=== PATIENT | female | born 1985 | race American Indian/Alaskan Native ===

== ENCOUNTER 2018-07-20 07:03 | Emergency (ER) | payer BC ==
[2018-07-20 07:28] VITALS: BP 126/75
--- NOTE | 2018-07-20 07:44 | Emergency Department Report ---
ED Headache HPI - General Chief Complaint: Headache Stated Complaint: HEAD PAIN Time Seen by Provider: 07/20/18 07:29 - History of Present Illness Initial Comments: This is a 32-year-old female with a history of migraine headaches who presents to the ED complaining of frontal, throbbing, intermittent, aching headache 2 days. Patient states she has no relief with ibuprofen and Excedrin. Palpation rates pain a 6 out of 10 in intensity. She admits mild nausea with no blurry vision. Patient is also complaining of left-sided mid to lower back pain that is worse with movement. Patient denies any recent injuries, trauma or falls. She denies fevers/chills/cough/runny nose Quality: moderate Head Injury Location: frontal Recent Head Trauma: no recent headache/trauma, chronic headaches Associated Symptoms: denies: confusion, fatigue, facial pain, nausea/vomiting, nasal congestion, seizures, stiff neck Allergies/Adverse Reactions: Allergies No Known Allergies Allergy (Verified 09/16/15 11:21) Home Medications: Ambulatory Orders Ibuprofen [Motrin] 600 mg PO Q6H PRN #30 tablet 09/18/15 Loratadine [Claritin] 10 mg PO DAILY PRN 09/18/15 Methylergonovine [Methergine] 0.2 mg PO Q8HR #3 tablet 09/18/15 RX: Doxycycline [Vibramycin CAP] 100 mg PO Q12HR #14 capsule 09/18/15 oxyCODONE /ACETAMINOPHEN [Percocet 5/325] 1 tab PO Q6HR PRN #20 tablet 09/18/15 Cyclobenzaprine [Flexeril] 10 mg PO QHS PRN #20 tablet 07/20/18 Ibuprofen [Motrin] 800 mg PO Q8HR #30 tablet 07/20/18 Prochlorperazine [Compazine] 10 mg PO Q8HR #30 tablet 07/20/18 ED Review of Systems ROS: Stated complaint: HEAD PAIN Other details as noted in HPI Comment: All other systems reviewed and negative 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 - Social History Smoking Status: Never Smoker Substance Use Type: None - Medications Home Medications: Home Medications Medication Instructions Recorded Confirmed Last Taken Type Ibuprofen [Motrin] 600 mg PO Q6H PRN #30 tablet 09/18/15 Unknown Rx Loratadine [Claritin] 10 mg PO DAILY PRN 09/18/15 09/18/15 09/16/15 History Methylergonovine [Methergine] 0.2 mg PO Q8HR #3 tablet 09/18/15 Unknown Rx RX: Doxycycline [Vibramycin CAP] 100 mg PO Q12HR #14 capsule 09/18/15 Unknown Rx oxyCODONE /ACETAMINOPHEN [Percocet 1 tab PO Q6HR PRN #20 tablet 09/18/15 Unknown Rx 5/325] Cyclobenzaprine [Flexeril] 10 mg PO QHS PRN #20 tablet 07/20/18 Unknown Rx Ibuprofen [Motrin] 800 mg PO Q8HR #30 tablet 07/20/18 Unknown Rx Prochlorperazine [Compazine] 10 mg PO Q8HR #30 tablet 07/20/18 Unknown Rx ED Physical Exam - General Limitations: No Limitations General appearance: alert, in no apparent distress - Head Head exam: Present: atraumatic, normocephalic - Eye Eye exam: Present: normal appearance, PERRL, EOMI Pupils: Present: normal accommodation - ENT ENT exam: Present: mucous membranes moist - Neck Neck exam: Present: normal inspection - Respiratory Respiratory exam: Present: normal lung sounds bilaterally. Absent: respiratory distress - Cardiovascular Cardiovascular Exam: Present: regular rate, normal rhythm. Absent: systolic murmur, diastolic murmur, rubs, gallop - GI/Abdominal GI/Abdominal exam: Present: soft, normal bowel sounds - Extremities Exam Extremities exam: Present: normal inspection - Back Exam Back exam: Present: normal inspection - Neurological Exam Neurological exam: Present: alert, oriented X3 - Expanded Neurological Exam Expanded Neurological exam: Absent: innattentive, memory loss-remote event, ataxia Patient oriented to: Present: person, place, time Cranial nerves: EOM's Intact: Normal, Facial Sensation: Normal Upper motor neuron: Boby Neglect: Normal Sensory exam: Upper Extremity Light Touch: Normal, Lower Extremity Light Touch: Normal Motor strength exam: RUE: 5, LUE: 5, RLE: 5, LLE: 5 Best Eye Response ([place]): (4) open spontaneously Best Motor Response (Astrid): (6) obeys commands Best Verbal Response (Astrid): (5) oriented Astrid Total: 15 - Psychiatric Psychiatric exam: Present: normal affect, normal mood - Skin Skin exam: Present: warm, dry, intact, normal color. Absent: rash ED Course Vital Signs 07/20/18 07:25 Temperature 98.4 F Pulse Rate 98 H Respiratory 16 Rate Blood Pressure 126/75 O2 Sat by Pulse 98 Oximetry ED Medical Decision Making - Medical Decision Making 32-year-old female presents with migraine headache Patient has no neurological deficit. She is in no acute distress. Patient was medicated during ED stay. Reports headache resolved Vital signs are normal. Patient is in no acute distress. Discussed follow-up with primary care physician. Discussed and is symptoms worsen or new symptoms return to return to ED immediately. Patient states understanding instructions and will follow-up - Differential Diagnosis migraine headache, sinusitis, UTI, myalgia Critical care attestation.: If time is entered above; I have spent that time in minutes in the direct care of this critically ill patient, excluding procedure time. ED Disposition Clinical Impression: Migraine headache with aura Disposition: TO HOME OR SELFCARE Is pt being admited?: No Does the pt Need Aspirin: No Condition: Stable Instructions: Migraine Headache (ED), Acute Headache (ED), Musculoskeletal Pain (ED) Additional Instructions: Make sure to follow up with the primary care physician as discussed. Take all your medications as you've been prescribed. If you have any worsening symptoms or develop new symptoms please return to ED immediately. Prescriptions: Cyclobenzaprine [Flexeril] 10 mg PO QHS PRN #20 tablet PRN Reason: Muscle Spasm Ibuprofen [Motrin] 800 mg PO Q8HR #30 tablet Prochlorperazine [Compazine] 10 mg PO Q8HR #30 tablet Referrals: BASILIO BETH MD [Staff Physician] - 3-5 Days [facility] [Outside] - 3-5 Days [facility] [Outside] - 3-5 Days Forms: Work/School Release Form(ED) Time of Disposition: 08:43
[2018-07-20 07:52] LABS: Bilirubin,Urine NEG (Negative); Blood,Urine NEG (Negative); Color,Urine Yellow (Yellow); Mucus,Urine FEW /HPF; Protein,Urine <15 mg/dL mg/dL (Negative); Urobilinogen,Urine < 2.0 mg/dL (<2.0)
[2018-07-20] MEDS ORDERED: COMPAZINE PO ONE (08:00)
[2018-07-20] MEDS ORDERED: IBUPROFEN PO ONE (08:41)
== END 2018-07-20 09:03 | disposition home or self-care (01) ==
LOC: ED 07:03
DX: G43.109 Migraine with aura, not intractable, without status migrainosus (principal); K21.9 Gastro-esophageal reflux disease without esophagitis
CPT/HCPCS: 81001; Q0164

== ENCOUNTER 2019-05-30 12:01 | Emergency (ER) | payer BC ==
--- NOTE | 2019-05-30 12:08 | Emergency Department Report ---
Blank Doc - Documentation Documentation: 33-year-old female that presents with abdominal pain with n/v. This initial assessment/diagnostic orders/clinical plan/treatment(s) is/are subject to change based on patient's health status, clinical progression and re- assessment by fellow clinical providers in the ED. Further treatment and workup at subsequent clinical providers discretion. Patient/guardians urged not to elope from the ED as their condition may be serious if not clinically assessed and managed. Initial orders include: 1- Patient sent to [facility] for further evaluation and treatment 2- labs 3- UA
[2019-05-30 12:51] LABS: Hematocrit 39.7 % (30.3-42.9); Hemoglobin 13.2 gm/dl (10.1-14.3); Mean Corpuscular HGB Conc 33 % (30-34); Mean Corpuscular Volume 89 fl (79-97); Platelet Count 272 K/mm3 (140-440); Red Blood Count 4.47 M/mm3 (3.65-5.03); Red Cell Distribution Width 14.2 % (13.2-15.2)
[2019-05-30 13:13] LABS: Alanine Aminotransferase 32 units/L (7-56); BUN/Creatinine Ratio 10; Blood Urea Nitrogen 9 mg/dL (7-17); Calcium 9.2 mg/dL (8.4-10.2); Hemolysis Index 1
[2019-05-30 13:37] LABS: Basophils % (Manual) 0 % (0.0-1.8); Eosinophils % (Manual) 0 % (0.0-4.3); Total Cells Counted 100
[2019-05-30 13:38] LABS: Large Platelets Few; Platelet Estimate Cons; RBC Morphology Normal
[2019-05-30 13:40] LABS: Bacteria,Urine 1+ /HPF (Negative); Bilirubin,Urine NEG (Negative); Blood,Urine NEG (Negative); Color,Urine Yellow (Yellow); Mucus,Urine 1+ /HPF; Urobilinogen,Urine < 2.0 mg/dL (<2.0)
[2019-05-30] MEDS ORDERED: POTASSIUM CHLORIDE ER 10 MEQ TAB PO ONE (14:26)
[2019-05-30] MEDS ORDERED: ONDANSETRON 4 MG ODT TAB PO ONE (14:32)
[2019-05-30] MEDS ORDERED: HYDROcodone/ACETAMINOPHEN 5-325 MG TAB PO ONE (14:32)
--- NOTE | 2019-05-30 14:41 | Emergency Department Report ---
HPI - General Chief Complaint: Nausea/Vomiting/Diarrhea Time Seen by Provider: 05/30/19 12:06 - HPI HPI: 33-year-old female presents to the emergency department with a complaint of a 5 day history of some lower abdominal and pelvic pain. She also has a four-day history of fever, nausea, vomiting, diarrhea, body aches. She denies any dysuria, vaginal bleeding or discharge. Patient says that she went to an urgent care on Monday, 4 days ago, and was diagnosed with influenza. She was actually started on antibiotics at that time. She has been taking this medication for her symptoms without any relief. She has a past medical history of migraine headaches, acid reflux and polycystic ovarian syndrome. No recent travel or sick contacts at home. 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 - Social History Smoking Status: Never Smoker Substance Use Type: None - Medications Home Medications: Home Medications Medication Instructions Recorded Confirmed Last Taken Type DOXYCYCLINE Hyclate [Vibramycin 100 mg PO Q12HR #14 capsule 09/18/15 Unknown Rx CAP] Ibuprofen [Motrin] 600 mg PO Q6H PRN #30 tablet 09/18/15 Unknown Rx Loratadine (Nf) [Claritin] 10 mg PO DAILY PRN 09/18/15 09/18/15 09/16/15 History Methylergonovine [Methergine] 0.2 mg PO Q8HR #3 tablet 09/18/15 Unknown Rx oxyCODONE /ACETAMINOPHEN [Percocet 1 tab PO Q6HR PRN #20 tablet 09/18/15 Unknown Rx 5/325] Cyclobenzaprine [Flexeril] 10 mg PO QHS PRN #20 tablet 07/20/18 Unknown Rx Ibuprofen [Motrin] 800 mg PO Q8HR #30 tablet 07/20/18 Unknown Rx Prochlorperazine [Compazine] 10 mg PO Q8HR #30 tablet 07/20/18 Unknown Rx Ondansetron [Zofran Odt] 4 mg PO Q8HR PRN #14 tab.rapdis 05/30/19 Unknown Rx ED Review of Systems ROS: Stated complaint: STOMACH PAIN/VOMIT/FEVER Other details as noted in HPI Constitutional: chills, fever Eyes: denies: eye pain, vision change ENT: denies: ear pain, throat pain Respiratory: denies: cough, shortness of breath Cardiovascular: denies: chest pain, palpitations Gastrointestinal: abdominal pain, nausea, vomiting, diarrhea Genitourinary: other (pelvic pain). denies: dysuria, discharge Musculoskeletal: back pain, myalgia Skin: denies: rash, lesions Neurological: denies: headache, weakness Physical Exam - Physical Exam Vital Signs: Vital Signs 05/30/19 12:06 Temperature 98.8 F Pulse Rate 123 H Respiratory 16 Rate Blood Pressure 116/71 O2 Sat by Pulse 97 Oximetry Physical Exam: GENERAL: The patient is well-developed well-nourished. HENT: Normocephalic. Atraumatic. Patient has moist mucous membranes. EYES: Extraocular motions are intact. NECK: Supple. Trachea is midline. CHEST/LUNGS: Clear to auscultation. There is no respiratory distress noted. HEART/CARDIOVASCULAR: Regular. There is mild tachycardia. There is no murmur. ABDOMEN: Abdomen is soft. There is some lower abdominal and upper pelvic tenderness to palpation. No guarding. Patient has normal bowel sounds. There is no abdominal distention. SKIN: Skin is warm and dry. NEURO: The patient is awake, alert, and oriented. The patient is cooperative. The patient has no focal neurologic deficits. The patient has normal speech. MUSCULOSKELETAL: There is no tenderness or deformity. There is no limitation range of motion. There is no evidence of acute injury. ED Course Vital Signs 05/30/19 12:06 Temperature 98.8 F Pulse Rate 123 H Respiratory 16 Rate Blood Pressure 116/71 O2 Sat by Pulse 97 Oximetry ED Medical Decision Making - Lab Data Result diagrams: 05/30/19 12:27 05/30/19 12:27 - Radiology Data Radiology results: report reviewed, image reviewed interpreted by me: Abdominal x-ray shows nonspecific nonobstructive bowel gas Pelvic ultrasound. 05/30/2019. HISTORY: Pelvic pain. FINDINGS: Imaging was performed by transabdominally and endovaginally. The uterus measures 7.7 x 3.6 x 4.4 cm. No uterine mass is present. The endometrial stripe measures 1.1 cm. Right ovary measures 3.5 x 2.3 x 3.5 cm. Left ovary measures 4. 2 x 2 by 2.9 cm. Both ovaries contain flow. Negative for adnexal mass or fluid. IMPRESSION: 1. Prominent endometrial stripe is likely cycle related. 2. Negative for adnexal mass or fluid. - Medical Decision Making This patient presents with a 5 day history of some lower abdominal and pelvic discomfort, as well as some nausea with vomiting, diarrhea, body aches, intermittent fever. She was diagnosed with influenza on Monday, 4 days ago. She has been taking an antibiotic that was prescribed to her from the urgent care. Patient's labs are mostly unremarkable. She has mild hypokalemia with a potassium of 3.3 that was replaced with potassium chloride. She has 20 ketones in the urine showing some mild dehydration. On examination she has some mild discomfort to the lower abdomen and upper pelvis. The abdomen is soft, nondistended and nontoxic in appearance. Abdominal x-ray shows nonspecific nonobstructive bowel gas. A transvaginal ultrasound showed a prominent endometrial stripe but otherwise no acute process including any adnexal mass or fluid. Upon reevaluation the tachycardia has resolved and the patient is feeling improved. There has been no further nausea or vomiting and the patient was able to pass an oral challenge. She'll be discharged home with some Zofran and discharged to increase her oral rehydration. She will follow up with a PCP and will return to the ER with any worsening of her symptoms or any acute distress. - Differential Diagnosis influenza, colitis, ovarian cyst, UTI Critical Care Time: No Critical care attestation.: If time is entered above; I have spent that time in minutes in the direct care of this critically ill patient, excluding procedure time. ED Disposition Clinical Impression: Viral syndrome, Combined abdominal and pelvic pain, Dehydration, Hypokalemia Nausea & vomiting Qualifiers: Vomiting type: unspecified Vomiting Intractability: non-intractable Qualified Code(s): R11.2 - Nausea with vomiting, unspecified Disposition: DC-01 TO HOME OR SELFCARE Is pt being admited?: No Condition: Stable Instructions: Dehydration (ED), Acute Nausea and Vomiting (ED), Viral Syndrome (ED) Additional Instructions: Please increase your oral rehydration. Follow up with a primary care physician in the next few days. Return to the emergency Department with any worsening of her symptoms or any acute distress. You can take Tylenol every 4-6 hours and ibuprofen every 6-8 hours, using weight-based dosing on the back of the bottle, as needed for any fever or discomfort. Prescriptions: Ondansetron [Zofran Odt] 4 mg PO Q8HR PRN #14 tab.rapdis PRN Reason: Nausea Referrals: PRIMARY CARE,MD [Primary Care Provider] - 3-5 Days Forms: Work/School Release Form(ED) Time of Disposition: 17:08
--- NOTE | 2019-05-30 15:01 | XRay Report ---
Abdomen 3 views, Indication: Abd pain Findings: The bowel gas pattern is within normal limits. There are no dilated loops of large or small bowel. No free air is identified. No radiopaque urinary tract calculi are seen. Lung bases are clear. Impression: No acute findings. Signer Name: Fahad Velez MD Signed: 05/30/2019 2:56 PM Workstation Name: [id number]
--- NOTE | 2019-05-30 16:19 | Ultrasound Report ---
Pelvic ultrasound. 05/30/2019. HISTORY: Pelvic pain. FINDINGS: Imaging was performed by transabdominally and endovaginally. The uterus measures 7.7 x 3.6 x 4.4 cm. No uterine mass is present. The endometrial stripe measures 1 .1 cm. Right ovary measures 3.5 x 2.3 x 3.5 cm. Left ovary measures 4. 2 x 2 by 2.9 cm. Both ovaries contain flow. Negative for adnexal mass or fluid. IMPRESSION: 1. Prominent endometrial stripe is likely cycle related. 2. Negative for adnexal mass or fluid. Signer Name: Bill Miller MD Signed: 05/30/2019 4:14 PM Workstation Name: [id number]
[2019-05-30 16:36] VITALS: BP 117/67
== END 2019-05-30 17:14 | disposition home or self-care (01) ==
LOC: ED 12:01
DX: E86.0 Dehydration (principal); E87.6 Hypokalemia; B34.9 Viral infection, unspecified; K21.9 Gastro-esophageal reflux disease without esophagitis; G43.909 Migraine, unspecified, not intractable, without status migrainosus; E28.2 Polycystic ovarian syndrome; Z79.899 Other long term (current) drug therapy
CPT/HCPCS: 36415; 74019; 76830; 80053; 81001; 83690; 84703; 85007; 85025; 93975; Q0162

== ENCOUNTER 2019-12-09 14:52 | Emergency (ER) | payer BC | END 2019-12-09 14:53 | disposition left against medical advice (07) | LOC: ED 14:52 | DX: Z00.8 Encounter for other general examination (principal); Z53.21 Procedure and treatment not carried out due to patient leaving prior to being seen by health care provider ==

== ENCOUNTER 2020-07-24 18:11 | Emergency (ER) | payer BC ==
[2020-07-24 18:53] LABS: Basophils # (Auto) 0.1 K/mm3 (0.0-0.1); Basophils % (Auto) 1.2 % (0.0-1.8); Eosinophils # (Auto) 0.1 K/mm3 (0.0-0.4); Eosinophils % (Auto) 3.1 % (0.0-4.3); Hematocrit 37.7 % (30.3-42.9); Hemoglobin 12.5 gm/dl (10.1-14.3); Lymphocytes # (Auto) 1.5 K/mm3 (1.2-5.4); Lymphocytes % (Auto) 34.7 % (13.4-35.0); Mean Corpuscular HGB Conc 33 % (30-34); Mean Corpuscular Volume 93 fl (79-97); Monocytes # (Auto) 0.4 K/mm3 (0.0-0.8); Platelet Count 335 K/mm3 (140-440); Red Blood Count 4.06 M/mm3 (3.65-5.03); Red Cell Distribution Width 13.4 % (13.2-15.2)
--- NOTE | 2020-07-24 18:54 | Event Note ---
ED Screening Note Date of service: 07/24/20 Time: 18:52 ED Screening Note: 34-year-old female with a history of depression and bipolar who has not been taking medication. Patient presents with suicidal ideation with a plan to hang herself. This initial assessment/diagnostic orders/clinical plan/treatment(s) is/are subject to change based on patients health status, clinical progression and re- assessment by fellow clinical providers in the ED. Further treatment and workup at subsequent clinical providers discretion. Patient/guardian urged not to elope from the ED as their condition may be serious if not clinically assessed and managed. Initial orders include: Labs, psych eval
[2020-07-24 19:03] LABS: Blood Urea Nitrogen 8 mg/dL (7-17); Hemolysis Index 4
[2020-07-24 19:11] LABS: BUN/Creatinine Ratio 11
[2020-07-24 19:48] LABS: Amphetamine Screen,Urine Negative; Benzodiazepines Screen,Urine Negative; Cocaine Screen,Urine Negative; Methadone Screen,Urine Negative; Opiate Screen,Urine Negative
[2020-07-24 19:51] LABS: Bilirubin,Urine NEG (Negative); Blood,Urine NEG (Negative); Color,Urine Yellow (Yellow); Hyaline Casts,Urine 1 /LPF; Mucus,Urine 3+ /HPF; Urobilinogen,Urine < 2.0 mg/dL (<2.0)
[2020-07-24 20:25] LABS: Cannabinoid Screen,Urine Positive
--- NOTE | 2020-07-24 21:02 | Emergency Department Report ---
ED Psych HPI - General Chief Complaint: Psych Stated Complaint: MENTAL HEALTH Time Seen by Provider: 07/24/20 20:51 Source: patient Mode of arrival: Ambulatory Limitations: No Limitations - History of Present Illness Initial Comments: Patient is a 34-year-old female that presents emergency room with complaints of depression, anxiety, suicidal ideations. Patient states that she tried to hang herself 2 days ago with her exercise resistance bands. Patient states she has been having thoughts of hurting yourself for a few weeks. Patient states the symptoms are coming more frequent. Patient states she is just very down her self and she just feels like she does not want to live. Patient states this happened pretty often around this time every year. Patient states she was on depression anxiety medications but she came off them about a year ago. Patient states she does not take any medications at this time. Patient denies chest pain or shortness of breath. Patient denies any physical complaints. Patient denies recent travel. Patient denies recent international travel. Patient denies exposure to the novel coronavirus. Patient denies sick contacts. Patient denies fever and chills. Patient denies cough. Patient denies diarrhea. Patient denies coming in contact with anybody with symptoms of the novel coronavirus. MD Complaint: suicidal ideation, feels depressed -: Sudden Associated Psychiatric Symptoms: depression, suicidal ideation, racing thoughts History of same: Yes Quality: constant, getting worse Improves With: none Worsens With: none Context: not taking psychiatric Associated Symptoms: denies: confusion, headache, shortness of breath, nausea, vomiting, syncope, insomnia Treatments Prior to Arrival: placed on mental he If Self Harm: admits thoughts of, has plan, has acted on plan - Related Data Home Medications Medication Instructions Recorded Confirmed Last Taken Loratadine (Nf) [Claritin] 10 mg PO DAILY PRN 09/18/15 09/18/15 09/16/15 Previous Rx's Medication Instructions Recorded Last Taken Type DOXYCYCLINE Hyclate [Vibramycin 100 mg PO Q12HR #14 capsule 09/18/15 Unknown Rx CAP] Ibuprofen [Motrin] 600 mg PO Q6H PRN #30 tablet 09/18/15 Unknown Rx Methylergonovine [Methergine] 0.2 mg PO Q8HR #3 tablet 09/18/15 Unknown Rx oxyCODONE /ACETAMINOPHEN [Percocet 1 tab PO Q6HR PRN #20 tablet 09/18/15 Unknown Rx 5/325] Cyclobenzaprine [Flexeril] 10 mg PO QHS PRN #20 tablet 07/20/18 Unknown Rx Ibuprofen [Motrin] 800 mg PO Q8HR #30 tablet 07/20/18 Unknown Rx Prochlorperazine [Compazine] 10 mg PO Q8HR #30 tablet 07/20/18 Unknown Rx Ondansetron [Zofran Odt] 4 mg PO Q8HR PRN #14 tab.rapdis 05/30/19 Unknown Rx Sulfamethoxazole/Trimethoprim 1 each PO BID 10 Days #20 tablet 07/24/20 Unknown Rx [Bactrim DS TAB] Allergies Allergy/AdvReac Type Severity Reaction Status Date / Time No Known Allergies Allergy Verified 07/24/20 18:15 ED Review of Systems ROS: Stated complaint: MENTAL HEALTH Other details as noted in HPI Constitutional: denies: chills, fever Eyes: denies: eye pain, eye discharge, vision change ENT: denies: ear pain, throat pain Respiratory: denies: cough, shortness of breath, wheezing Cardiovascular: denies: chest pain, palpitations Endocrine: no symptoms reported Gastrointestinal: denies: abdominal pain, nausea, diarrhea Genitourinary: denies: urgency, dysuria, discharge Musculoskeletal: denies: back pain, joint swelling, arthralgia Skin: denies: rash, lesions Neurological: denies: headache, weakness, paresthesias Psychiatric: as per HPI, anxiety, depression, suicidal thoughts Hematological/Lymphatic: denies: easy bleeding, easy bruising ED Past Medical Hx - Past Medical History Previous Medical History?: Yes Hx GERD: Yes Hx Headaches / Migraines: Yes (migraines) Hx Psychiatric Treatment: Yes (Anxiety and depression) Additional medical history: PCOS - Surgical History Past Surgical History?: Yes Additional Surgical History: 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 - Family History Family history: no significant - Social History Smoking Status: Never Smoker Substance Use Type: None - Medications Home Medications: Home Medications Medication Instructions Recorded Confirmed Last Taken Type DOXYCYCLINE Hyclate [Vibramycin 100 mg PO Q12HR #14 capsule 09/18/15 Unknown Rx CAP] Ibuprofen [Motrin] 600 mg PO Q6H PRN #30 tablet 09/18/15 Unknown Rx Loratadine (Nf) [Claritin] 10 mg PO DAILY PRN 09/18/15 09/18/15 09/16/15 History Methylergonovine [Methergine] 0.2 mg PO Q8HR #3 tablet 09/18/15 Unknown Rx oxyCODONE /ACETAMINOPHEN [Percocet 1 tab PO Q6HR PRN #20 tablet 09/18/15 Unknown Rx 5/325] Cyclobenzaprine [Flexeril] 10 mg PO QHS PRN #20 tablet 07/20/18 Unknown Rx Ibuprofen [Motrin] 800 mg PO Q8HR #30 tablet 07/20/18 Unknown Rx Prochlorperazine [Compazine] 10 mg PO Q8HR #30 tablet 07/20/18 Unknown Rx Ondansetron [Zofran Odt] 4 mg PO Q8HR PRN #14 tab.rapdis 05/30/19 Unknown Rx Sulfamethoxazole/Trimethoprim 1 each PO BID 10 Days #20 tablet 07/24/20 Unknown Rx [Bactrim DS TAB] ED Physical Exam - General Limitations: No Limitations General appearance: alert, in no apparent distress - Head Head exam: Present: atraumatic, normocephalic - Eye Eye exam: Present: normal appearance - ENT ENT exam: Present: mucous membranes moist - Neck Neck exam: Present: normal inspection - Respiratory Respiratory exam: Present: normal lung sounds bilaterally. Absent: respiratory distress - Cardiovascular Cardiovascular Exam: Present: regular rate, normal rhythm. Absent: systolic murmur, diastolic murmur, rubs, gallop - GI/Abdominal GI/Abdominal exam: Present: soft, normal bowel sounds - Extremities Exam Extremities exam: Present: normal inspection - Back Exam Back exam: Present: normal inspection - Neurological Exam Neurological exam: Present: alert, oriented X3 - Psychiatric Psychiatric exam: Present: depressed, flat affect, suicidal ideation - Skin Skin exam: Present: warm, dry, intact, normal color. Absent: rash ED Course Vital Signs 07/24/20 18:18 Temperature 98.1 F Pulse Rate 70 Respiratory 18 Rate Blood Pressure 109/69 O2 Sat by Pulse 100 Oximetry - Reevaluation(s) Reevaluation #1: Initial evaluation done. Patient placed on a 1013 and an ER hold. Patient is medically cleared. Patient will remain in the ER as an ER hold and 1013 until the patient's final disposition comes from our mental health and psychiatry team. I discussed all results and clinical findings with patient. I discussed plan of care with patient. Patient agrees with plan of care. Patient is stable for and medically cleared. 07/24/20 21:02 ED Medical Decision Making - Lab Data Result diagrams: 07/24/20 18:31 07/24/20 18:31 - Medical Decision Making Patient is a 34-year-old female that presents emergency room with complaints of depression, anxiety, suicidal ideations and a suicide attempt. Patient placed on 1013 after initial evaluation. Patient had labs done. Patient's labs were essentially unremarkable except for UTI. Patient given oral antibiotics. Patient is medically cleared. Patient will remain in the ER as an ER hold and on a 1013 until the patient is cleared from a psychiatric standpoint by our psych team and mental health team. - Differential Diagnosis Depression, anxiety, suicidal ideations, stress Critical care attestation.: If time is entered above; I have spent that time in minutes in the direct care of this critically ill patient, excluding procedure time. ED Disposition Clinical Impression: Suicidal ideation, Suicide attempt, Medical clearance for psychiatric admission Depression Qualifiers: Depression Type: unspecified Qualified Code(s): F32.9 - Major depressive disorder, single episode, unspecified UTI (urinary tract infection) Qualifiers: Urinary tract infection type: acute cystitis Hematuria presence: with hematuria Qualified Code(s): N30.01 - Acute cystitis with hematuria Disposition: DC/TX-65 PSY HOSP/PSY UNIT Is pt being admited?: No Does the pt Need Aspirin: No Condition: Stable Additional Instructions: Patient to follow-up with primary care in 2 to 3 days. Patient to rest. Patient to increase water. Patient to take Tylenol or ibuprofen as needed for pain. Patient to take meds as directed. Patient to return to the ER if condition worsens, changes or new symptoms arise. Prescriptions: Sulfamethoxazole/Trimethoprim [Bactrim DS TAB] 1 each PO BID 10 Days #20 tablet Referrals: PRIMARY CARE, [Primary Care Provider] - 2-3 Days Time of Disposition: 21:08
[2020-07-24] MEDS ORDERED: SULFAMETHOXAZOLE/TRIMETHOPRIM 800/160MG DS TAB PO SCH (22:00)
[2020-07-24 23:30] VITALS: BP 114/62
== END 2020-07-25 02:51 ==
LOC: ED 18:11
DX: F32.9 Major depressive disorder, single episode, unspecified (principal); N39.0 Urinary tract infection, site not specified; K21.9 Gastro-esophageal reflux disease without esophagitis; G43.909 Migraine, unspecified, not intractable, without status migrainosus; F41.9 Anxiety disorder, unspecified; Z79.899 Other long term (current) drug therapy; Z04.6 Encounter for general psychiatric examination, requested by authority
CPT/HCPCS: 36415; 80048; 80307; 80320; 81001; 85025; G0480